=== PATIENT | male | born 1965 | race Asian ===

== ENCOUNTER 2016-09-23 11:44 | Outpatient (CLI) | payer OTHER ==
[2016-09-23 12:46] LABS: ALBUMIN 3.6 g/dL (3.4-5.0); ANION GAP 11.2 (8-16); CALCIUM 8.9 mg/dL (8.5-10.1); CARBON DIOXIDE 28.3 mmol/L (21-32); CHOL/HDL RATIO 3.6 (1-4.5); CREATININE 1.5 mg/dL (0.6-1.3); POTASSIUM 4.5 mmol/L (3.5-5.1); TOTAL BILIRUBIN 0.5 mg/dL (0.0-1.0); TOTAL PROTEIN, SERUM 7.7 g/dL (6.4-8.2)
[2016-09-23 13:09] LABS: URIC ACID 6.8 mg/dL (2.6-7.2)
[2016-09-24 10:35] LABS: HEMOGLOBIN A1C 5.9 % (4.8-5.6)
[2016-09-24 12:47] LABS: VITAMIN D, 25-HYDROXY 37.8 ng/mL (30.0-100.0)
== END 2016-09-23 18:26 | disposition home or self-care (01) ==
LOC: MLB 11:44
PROVIDERS: ATTEND Internal Medicine Geriatric Medicine
DX: E55.9 Vitamin D deficiency, unspecified (principal); M10.9 Gout, unspecified; R73.03 Prediabetes; E78.5 Hyperlipidemia, unspecified
CPT/HCPCS: 36415; 80053; 82306; 83036; 84550

== ENCOUNTER 2017-01-21 10:56 | Outpatient (CLI) | payer OTHER ==
[2017-01-21 12:23] LABS: ALBUMIN 3.4 g/dL (3.4-5.0); ANION GAP 9.7 (8-16); CALCIUM 8.4 mg/dL (8.5-10.1); CARBON DIOXIDE 25.8 mmol/L (21-32); CHOL/HDL RATIO 3.5 (1-4.5); CREATININE 1.3 mg/dL (0.7-1.3); POTASSIUM 4.5 mmol/L (3.5-5.1); TOTAL BILIRUBIN 0.6 mg/dL (0.0-1.0); TOTAL PROTEIN, SERUM 7.4 g/dL (6.4-8.2)
[2017-01-21 12:42] LABS: URIC ACID 6.7 mg/dL (2.6-7.2)
== END 2017-01-21 20:29 | disposition home or self-care (01) ==
LOC: MLB 10:56
PROVIDERS: ATTEND Internal Medicine Geriatric Medicine
DX: E78.5 Hyperlipidemia, unspecified (principal); M10.9 Gout, unspecified
CPT/HCPCS: 36415; 80053; 83036; 84550

== ENCOUNTER 2017-04-24 09:37 | Outpatient (CLI) | payer OTHER ==
[2017-04-24 10:30] LABS: ANION GAP 11.3 (8-16); CARBON DIOXIDE 25.8 mmol/L (21-32); CREATININE 1.4 mg/dL (0.7-1.3); POTASSIUM 4.1 mmol/L (3.5-5.1)
== END 2017-04-24 20:39 | disposition home or self-care (01) ==
LOC: MLB 09:37
PROVIDERS: ATTEND Internal Medicine Geriatric Medicine
DX: Z12.11 Encounter for screening for malignant neoplasm of colon (principal); I11.9 Hypertensive heart disease without heart failure; R73.03 Prediabetes; E55.9 Vitamin D deficiency, unspecified
CPT/HCPCS: 36415; 80048; 82272; 83036

== ENCOUNTER 2017-07-14 12:04 | Outpatient (CLI) | payer OTHER ==
[2017-07-14 12:35] LABS: BASOPHILS # (AUTO) 0.3 K/uL (0.00-0.22); BASOPHILS % (AUTO) 3.2 % (0.0-2.0); EOSINOPHILS # (AUTO) 1.4 K/uL (0-0.4); EOSINOPHILS % (AUTO) 15.1 % (0.0-4.0); HEMATOCRIT 45.4 % (36-52); HEMOGLOBIN 15.3 g/dL (12.0-18.0); LYMPHOCYTES % (AUTO) 21.7 % (20.5-51.1); MEAN CORPUSCULAR HEMOGLOBIN 31 pg (27-31); MEAN CORPUSCULAR HGB CONC 34 g/dL (33-37); MEAN CORPUSCULAR VOLUME 93 fL (80-94); MONOCYTES # (AUTO) 0.9 K/uL (0.8-1.0); MONOCYTES % (AUTO) 9.8 % (1.7-9.3); NEUTROPHILS # (AUTO) 4.8 K/uL (1.8-7.7); NEUTROPHILS % (AUTO) 50.2 % (42.2-75.2); PLATELET COUNT (AUTO) 232 K/uL (140-450); RED CELL DISTRIBUTION WIDTH 14.9 % (11.6-13.7); WHITE BLOOD COUNT (AUTO) 9.4 K/uL (4.8-10.8)
[2017-07-14 13:28] LABS: ALBUMIN 3.6 g/dL (3.4-5.0); ANION GAP 14.3 (8-16); CARBON DIOXIDE 28.1 mmol/L (21-32); CHOL/HDL RATIO 3.4 (1-4.5); CREATININE 1.7 mg/dL (0.7-1.3); POTASSIUM 5.4 mmol/L (3.5-5.1); TOTAL BILIRUBIN 0.6 mg/dL (0.0-1.0)
== END 2017-07-14 21:05 | disposition home or self-care (01) ==
LOC: MLB 12:04
PROVIDERS: ATTEND Internal Medicine Geriatric Medicine
DX: M10.9 Gout, unspecified (principal); R73.09 Other abnormal glucose; E55.9 Vitamin D deficiency, unspecified
CPT/HCPCS: 36415; 80053; 82306; 83036; 85025

== ENCOUNTER 2017-08-20 13:05 | Outpatient (CLI) | payer OTHER ==
[2017-08-20 15:13] LABS: ANION GAP 12.4 (8-16); CARBON DIOXIDE 27.3 mmol/L (21-32); CREATININE 1.7 mg/dL (0.7-1.3); POTASSIUM 4.7 mmol/L (3.5-5.1)
== END 2017-08-20 17:22 | disposition home or self-care (01) ==
LOC: MLB 13:05
PROVIDERS: ATTEND Internal Medicine Geriatric Medicine
DX: I11.9 Hypertensive heart disease without heart failure (principal); I50.9 Heart failure, unspecified; I48.91 Unspecified atrial fibrillation
CPT/HCPCS: 36415; 80048

== ENCOUNTER 2017-11-11 11:32 | Outpatient (CLI) | payer OTHER ==
[2017-11-11 12:42] LABS: ALBUMIN 3.4 g/dL (3.4-5.0); ANION GAP 12.9 (8-16); CARBON DIOXIDE 22.4 mmol/L (21-32); CHOL/HDL RATIO 3.7 (1-4.5); CREATININE 1.6 mg/dL (0.7-1.3); POTASSIUM 4.3 mmol/L (3.5-5.1); TOTAL BILIRUBIN 0.4 mg/dL (0.0-1.0)
== END 2017-11-11 20:01 | disposition home or self-care (01) ==
LOC: MLB 11:32
PROVIDERS: ATTEND Internal Medicine Geriatric Medicine
DX: I11.9 Hypertensive heart disease without heart failure (principal); E78.5 Hyperlipidemia, unspecified; R73.03 Prediabetes
CPT/HCPCS: 36415; 80053; 83036

== ENCOUNTER 2018-01-14 12:42 | Outpatient (CLI) | payer OTHER ==
[2018-01-14 13:57] LABS: ANION GAP 14.9 (8-16); CARBON DIOXIDE 24.4 mmol/L (21-32); CREATININE 1.7 mg/dL (0.7-1.3); POTASSIUM 4.3 mmol/L (3.5-5.1)
== END 2018-01-14 20:49 | disposition home or self-care (01) ==
LOC: MLB 12:42
PROVIDERS: ATTEND Internal Medicine Geriatric Medicine
DX: I12.9 Hypertensive chronic kidney disease with stage 1 through stage 4 chronic kidney disease, or unspecified chronic kidney disease (principal); N18.3 Chronic kidney disease, stage 3 (moderate)
CPT/HCPCS: 36415; 80048

== ENCOUNTER 2018-03-18 12:26 | Outpatient (CLI) | payer OTHER ==
[2018-03-18 12:20] LABS: BASOPHILS # (AUTO) 0.1 K/uL (0.00-0.22); BASOPHILS % (AUTO) 0.7 % (0.0-2.0); EOSINOPHILS # (AUTO) 1.3 K/uL (0-0.4); EOSINOPHILS % (AUTO) 13.4 % (0.0-4.0); HEMATOCRIT 46.1 % (36-52); HEMOGLOBIN 15.5 g/dL (12.0-18.0); LYMPHOCYTES # (AUTO) 2.6 K/uL (2.0-11.5); LYMPHOCYTES % (AUTO) 26.9 % (20.5-51.1); MEAN CORPUSCULAR HEMOGLOBIN 32 pg (27-31); MEAN CORPUSCULAR HGB CONC 34 g/dL (33-37); MEAN CORPUSCULAR VOLUME 94.3 fL (80-94); MONOCYTES # (AUTO) 0.8 K/uL (0.8-1.0); MONOCYTES % (AUTO) 7.9 % (1.7-9.3); NEUTROPHILS # (AUTO) 4.9 K/uL (1.8-7.7); NEUTROPHILS % (AUTO) 51.1 % (42.2-75.2); PLATELET COUNT (AUTO) 257 K/uL (140-450); RED BLOOD CELL COUNT(AUTO) 4.89 MIL/uL (4.20-6.10); RED CELL DISTRIBUTION WIDTH 14.1 % (11.6-13.7); WHITE BLOOD COUNT (AUTO) 9.7 K/uL (4.8-10.8)
[2018-03-18 12:28] LABS: ANION GAP 4.3 (8-16); CARBON DIOXIDE 28.2 mmol/L (21-32); CREATININE 1.6 mg/dL (0.7-1.3); POTASSIUM 4.5 mmol/L (3.5-5.1)
[2018-03-18 12:42] LABS: ALBUMIN 3.5 g/dL (3.4-5.0); CHOL/HDL RATIO 5.5 (1-4.5); THYROID STIMULATING HORMONE 0.56 uIU/mL (0.34-3.74); TOTAL BILIRUBIN 0.6 mg/dL (0.0-1.0)
== END 2018-03-18 16:04 | disposition home or self-care (01) ==
LOC: MLB 12:26
PROVIDERS: ATTEND Internal Medicine Geriatric Medicine
DX: E55.9 Vitamin D deficiency, unspecified (principal); I11.9 Hypertensive heart disease without heart failure
CPT/HCPCS: 36415; 80053; 82306; 84443; 85025

== ENCOUNTER 2018-06-17 12:30 | Outpatient (CLI) | payer OTHER ==
[2018-06-17 13:04] LABS: ALBUMIN 3.6 g/dL (3.4-5.0); ANION GAP 14.5 (8-16); CARBON DIOXIDE 28.3 mmol/L (21-32); CHOL/HDL RATIO 3.4 (1-4.5); CREATININE 1.7 mg/dL (0.7-1.3); POTASSIUM 4.8 mmol/L (3.5-5.1); TOTAL BILIRUBIN 0.5 mg/dL (0.0-1.0)
== END 2018-06-17 20:04 | disposition home or self-care (01) ==
LOC: MLB 12:30
PROVIDERS: ATTEND Internal Medicine Geriatric Medicine
DX: E78.5 Hyperlipidemia, unspecified (principal); I10 Essential (primary) hypertension
CPT/HCPCS: 36415; 80053

== ENCOUNTER 2018-09-18 12:06 | Outpatient (CLI) | payer OTHER ==
[2018-09-18 14:24] LABS: ANION GAP 17.4 (8-16); CARBON DIOXIDE 21.9 mmol/L (21-32); POTASSIUM 4.3 mmol/L (3.5-5.1)
[2018-09-18 14:25] LABS: CREATININE 1.5 mg/dL (0.7-1.3); TOTAL BILIRUBIN 0.4 mg/dL (0.0-1.0)
[2018-09-18 14:26] LABS: ALBUMIN 3.5 g/dL (3.4-5.0); CHOL/HDL RATIO 3.2 (1-4.5)
== END 2018-09-18 21:57 | disposition home or self-care (01) ==
LOC: MLB 12:06
PROVIDERS: ATTEND Internal Medicine Geriatric Medicine
DX: E78.5 Hyperlipidemia, unspecified (principal); R73.9 Hyperglycemia, unspecified
CPT/HCPCS: 36415; 80053; 83036; 86900; 86901

== ENCOUNTER 2019-01-18 11:20 | Outpatient (CLI) | payer OTHER ==
[2019-01-18 12:49] LABS: ALBUMIN 3.4 g/dL (3.4-5.0); ANION GAP 10.7 (8-16); CARBON DIOXIDE 27.1 mmol/L (21-32); CHOL/HDL RATIO 3.7 (1-4.5); CREATININE 1.5 mg/dL (0.7-1.3); POTASSIUM 4.8 mmol/L (3.5-5.1); TOTAL BILIRUBIN 0.5 mg/dL (0.0-1.0)
[2019-01-18 14:24] LABS: URIC ACID 7.1 mg/dL (2.6-7.2)
== END 2019-01-18 21:05 | disposition home or self-care (01) ==
LOC: MLB 11:20
PROVIDERS: ATTEND Internal Medicine Geriatric Medicine
DX: E78.5 Hyperlipidemia, unspecified (principal); I11.9 Hypertensive heart disease without heart failure; M10.9 Gout, unspecified
CPT/HCPCS: 36415; 80053; 84550